=== PATIENT | male | born 1980 | race American Indian/Alaskan Native ===

== ENCOUNTER 2020-12-25 01:19 | Emergency (ER) | payer SELFPAY ==
--- NOTE | 2020-12-25 02:06 | Emergency Department Report ---
HPI <BIANCA HESTER - Last Filed: 12/25/20 15:50> - HPI HPI: Room 37 The patient is a 40-year-old male present with a chief complaint of altered mental status. The patient's roommate states the patient has no past medical history and his last known well time was around lunchtime earlier this afternoon . The patient was found with altered mental status by the roommate. THC and CBD edibles were found near the patient. The patient is behaving as if he is intoxicated <WILMER DONNELLY - Last Filed: 12/26/20 05:18> - General Chief Complaint: Altered Mental Status ED Past Medical Hx <BIANCA HESTER - Last Filed: 12/25/20 15:50> - Past Medical History Previous Medical History?: No Additional medical history: unable to obtain info from patient, per EMS no PMH - Surgical History Past Surgical History?: No - Family History Family history: no significant - Social History Smoking Status: Unknown if ever smoked Substance Use Type: Marijuana <WILMER DONNELLY - Last Filed: 12/26/20 05:18> - Medications Home Medications: Home Medications Medication Instructions Recorded Confirmed Last Taken Type Unobtainable 12/26/20 12/26/20 Unknown History ED Review of Systems ROS: Stated complaint: AMS Other details as noted in HPI <BIANCA HESTER - Last Filed: 12/25/20 15:50> ROS: Stated complaint: AMS Other details as noted in HPI Comment: Unobtainable due to pts medical conditions <WILMER DONNELLY - Last Filed: 12/26/20 05:18> Physical Exam - Physical Exam Vital Signs: Vital Signs 12/25/20 12/25/20 12/25/20 01:36 03:09 06:30 Temperature 98.2 F 98.1 F Pulse Rate 104 H 87 Respiratory 13 16 Rate Blood Pressure 118/61 133/81 [Left] O2 Sat by Pulse 98 100 Oximetry 12/25/20 07:16 Temperature Pulse Rate 74 Respiratory 12 Rate Blood Pressure 129/72 [Left] O2 Sat by Pulse 99 Oximetry <BIANCA HESTER - Last Filed: 12/25/20 15:50> - Physical Exam Vital Signs: Vital Signs 12/25/20 01:36 Temperature 98.2 F Pulse Rate 104 H Respiratory 13 Rate O2 Sat by Pulse 98 Oximetry Physical Exam: GENERAL: The patient is well-developed well-nourished male lying on stretcher appearing intoxicated. [] HEENT: Normocephalic. Atraumatic. Extraocular motions are intact. Patient has moist mucous membranes. NECK: Supple. Trachea midline CHEST/LUNGS: Clear to auscultation. There is no respiratory distress noted. HEART/CARDIOVASCULAR: Regular. There is no tachycardia. There is no gallop rub or murmur. ABDOMEN: Abdomen is soft, nontender. Patient has normal bowel sounds. There is no abdominal distention. SKIN: There is no rash. There is no edema. There is no diaphoresis. NEURO: The patient is awake but behaves as if she is intoxicated patient is smiling and happy at times and other times yelling out. The patient is only intermittently cooperative. The patient has no focal neurologic deficits. The patient has normal speech MUSCULOSKELETAL: There is no evidence of acute injury. <WILMER DONNELLY K - Last Filed: 12/26/20 05:18> ED Course Vital Signs 12/25/20 12/25/20 12/25/20 01:36 03:09 06:30 Temperature 98.2 F 98.1 F Pulse Rate 104 H 87 Respiratory 13 16 Rate Blood Pressure 118/61 133/81 [Left] O2 Sat by Pulse 98 100 Oximetry 12/25/20 07:16 Temperature Pulse Rate 74 Respiratory 12 Rate Blood Pressure 129/72 [Left] O2 Sat by Pulse 99 Oximetry - Reevaluation(s) Reevaluation #1: 12/25/20 13:51 As has been reporting to me patient's mental status evaluation. I also went to the bedside to evaluate patient at this time. I tapped patient on his shoulder and he is opens his eyes and just stares at me. He makes eye contact but would not speak or follow commands. Then he closes his eyes and goes right to sleep. This is consistent with nurses recent evaluation over the last several hours 12/25/20 15:37 Mental health assessed patient and once again he opened his eyes but would not speak. She is requested a UA to complete medical clearance for psychiatric evaluation. 1013 has been signed - Consultations Consultation #1: 12/25/20 13:56 Case discussed with [facility] control. She states that she expects m arijuana/CBD edibles to last approximately 4 to 6 hours until patient is back to normal. She does suggest that if patient took synthetic marijuana which is not detected symptoms can be more unpredictable and prolonged. Also that marijuana can induce a permanent psychiatric break or prolonged mental health effects. No further testing recommended at this time beyond what has been done in the ER. At this time I will obtain mental health evaluation for possible prolonged drugs induced psychosis versus acute drug induced psychiatric break 12/25/20 14:10 Case discussed with [facility] mental health provider. Patient will be assessed by mental health staff <BIANCA HESTER - Last Filed: 12/25/20 15:50> Vital Signs 12/25/20 01:36 Temperature 98.2 F Pulse Rate 104 H Respiratory 13 Rate O2 Sat by Pulse 98 Oximetry <WILMER DONNELLY - Last Filed: 12/26/20 05:18> ED Medical Decision Making - Lab Data Result diagrams: 12/25/20 01:43 12/25/20 01:56 Lab Results 12/25/20 12/25/20 12/25/20 Range/Units 01:43 01:56 01:56 WBC 10.2 (4.5-11.0) K/mm3 RBC 5.26 H (3.65-5.03) M/mm3 Hgb 14.1 (11.8-15.2) gm/dl Hct 42.7 (35.5-45.6) % MCV 81 L (84-94) fl MCH 27 L (28-32) pg MCHC 33 (32-34) % RDW 15.4 H (13.2-15.2) % Plt Count 283 (140-440) K/mm3 Lymph % (Auto) 13.3 L (13.4-35.0) % Gage % (Auto) 6.0 (0.0-7.3) % Eos % (Auto) 0.0 (0.0-4.3) % Baso % (Auto) 0.2 (0.0-1.8) % Lymph # (Auto) 1.4 (1.2-5.4) K/mm3 Gage # (Auto) 0.6 (0.0-0.8) K/mm3 Eos # (Auto) 0.0 (0.0-0.4) K/mm3 Baso # (Auto) 0.0 (0.0-0.1) K/mm3 Seg Neutrophils % 80.5 H (40.0-70.0) % Seg Neutrophils # 8.3 H (1.8-7.7) K/mm3 Sodium 137 (137-145) mmol/L Potassium 4.1 (3.6-5.0) mmol/L Chloride 97.5 L (98-107) mmol/L Carbon Dioxide 24 (22-30) mmol/L Anion Gap 20 mmol/L BUN 8 L (9-20) mg/dL Creatinine 1.0 (0.8-1.3) mg/dL Estimated GFR > 60 ml/min BUN/Creatinine Ratio 8 % Glucose 119 H (75-100) mg/dL Calcium 9.4 (8.4-10.2) mg/dL Total Bilirubin 0.50 (0.1-1.2) mg/dL AST 19 (5-40) units/L ALT 18 (7-56) units/L Alkaline Phosphatase 59 (35-129) units/L Total Creatine Kinase 347 H (55-170) units/L CK-MB (CK-2) 2.4 (0.0-4.0) ng/mL CK-MB (CK-2) Rel Index 0.6 (0-4) Troponin T < 0.010 (0.00-0.029) ng/mL Total Protein 7.4 (6.3-8.2) g/dL Albumin 4.9 (3.9-5) g/dL Albumin/Globulin Ratio 2.0 % Salicylates (2.8-20.0) mg/dL Urine Opiates Screen Urine Methadone Screen Acetaminophen (10.0-30.0) ug/mL Ur Barbiturates Screen Ur Phencyclidine Scrn Ur Amphetamines Screen U Benzodiazepines Scrn Urine Cocaine Screen U Marijuana (THC) Screen Drugs of Abuse Note Plasma/Serum Alcohol < 0.01 (0-0.07) % 12/25/20 12/25/20 12/25/20 Range/Units 02:04 05:27 05:27 WBC (4.5-11.0) K/mm3 RBC (3.65-5.03) M/mm3 Hgb (11.8-15.2) gm/dl Hct (35.5-45.6) % MCV (84-94) fl MCH (28-32) pg MCHC (32-34) % RDW (13.2-15.2) % Plt Count (140-440) K/mm3 Lymph % (Auto) (13.4-35.0) % Gage % (Auto) (0.0-7.3) % Eos % (Auto) (0.0-4.3) % Baso % (Auto) (0.0-1.8) % Lymph # (Auto) (1.2-5.4) K/mm3 Gage # (Auto) (0.0-0.8) K/mm3 Eos # (Auto) (0.0-0.4) K/mm3 Baso # (Auto) (0.0-0.1) K/mm3 Seg Neutrophils % (40.0-70.0) % Seg Neutrophils # (1.8-7.7) K/mm3 Sodium (137-145) mmol/L Potassium (3.6-5.0) mmol/L Chloride (98-107) mmol/L Carbon Dioxide (22-30) mmol/L Anion Gap mmol/L BUN (9-20) mg/dL Creatinine (0.8-1.3) mg/dL Estimated GFR ml/min BUN/Creatinine Ratio % Glucose (75-100) mg/dL Calcium (8.4-10.2) mg/dL Total Bilirubin (0.1-1.2) mg/dL AST (5-40) units/L ALT (7-56) units/L Alkaline Phosphatase (35-129) units/L Total Creatine Kinase (55-170) units/L CK-MB (CK-2) (0.0-4.0) ng/mL CK-MB (CK-2) Rel Index (0-4) Troponin T (0.00-0.029) ng/mL Total Protein (6.3-8.2) g/dL Albumin (3.9-5) g/dL Albumin/Globulin Ratio % Salicylates < 0.3 L (2.8-20.0) mg/dL Urine Opiates Screen Presumptive negative Urine Methadone Screen Presumptive negative Acetaminophen 5.0 L (10.0-30.0) ug/mL Ur Barbiturates Screen Presumptive negative Ur Phencyclidine Scrn Presumptive negative Ur Amphetamines Screen Presumptive negative U Benzodiazepines Scrn Presumptive negative Urine Cocaine Screen Presumptive negative U Marijuana (THC) Screen Presumptive positive Drugs of Abuse Note Disclamer Plasma/Serum Alcohol (0-0.07) % - Radiology Data Radiology results: report reviewed (ct head: naf) - Medical Decision Making 40-year-old male signed out to me by previous provider Dr. Donnelly for marijuana intoxication and abnormal behavior. Patient symptoms have evolved from initial giddiness, yelling to some mild confusion and drowsiness to now blank stares with any type of verbal or tactile stimulation. Patient has been in the ED for over 13 hours and is still not back to his baseline. ED work-up including chemistries, CBC, and CT head are unremarkable. Tox screen reveals marijuana use only with negative alcohol, aspirin, and Tylenol. Vital signs have remained stable and within normal range during ED stay. Case was discussed with poison control who does not recommend any additional testing at this time. I highly suspect the patient is exhibiting prolonged psychiatric symptoms from drug abuse since THC and CBD edibles were found at the scene. Mental health evaluation has been requested due to prolonged duration of drug-induced mental health changes. Ua pending at time of my dispo at 4pm, 1013 signed, attempted to evaluate pt but since he is not speaking will reattempt tomorrow. Will request that Dr Sanford f/u UA results to r/o infection <BIANCA HESTER - Last Filed: 12/25/20 15:50> - Lab Data Result diagrams: 12/25/20 01:43 12/25/20 01:56 - EKG Data -: EKG Interpreted by Me EKG shows normal: sinus rhythm Rate: normal - EKG Data When compared to previous EKG there are: previous EKG unavailable Interpretation: other (No ischemic changes seen) - Differential Diagnosis Intoxication <WILMER DONNELLY - Last Filed: 12/26/20 05:18> Critical Care Time: No Critical care attestation.: If time is entered above; I have spent that time in minutes in the direct care o f this critically ill patient, excluding procedure time. <BIANCA HESTER - Last Filed: 12/25/20 15:50> Critical care attestation.: If time is entered above; I have spent that time in minutes in the direct care of this critically ill patient, excluding procedure time. <WILMER DONNELLY - Last Filed: 12/26/20 05:18> ED Disposition <BIANCA HESTER - Last Filed: 12/25/20 15:50> Is pt being admited?: No Does the pt Need Aspirin: No <WILMER DONNELLY - Last Filed: 12/26/20 05:18> Clinical Impression: Marijuana intoxication, Substance or medication-induced psychotic disorder Disposition: DC/TX-65 PSY HOSP/PSY UNIT Condition: Stable Instructions: Cannabis Use Disorder Additional Instructions: Return to the emergency department should you develop worsening symptoms, inability to tolerate food or liquids, high fever or any other concerns Referrals: PRIMARY CARE, [Primary Care Provider] - 3-5 Days
[2020-12-25] MEDS ORDERED: HALOPERIDOL LACTATE 5 MG/1 ML INJ IM PRN (02:11)
[2020-12-25] MEDS ORDERED: diphenhydrAMINE 50 MG/ML VIAL IM PRN (02:11)
[2020-12-25 02:36] LABS: Basophils % (Auto) 0.2 % (0.0-1.8); Hematocrit 42.7 % (35.5-45.6); Hemoglobin 14.1 gm/dl (11.8-15.2); Lymphocytes # (Auto) 1.4 K/mm3 (1.2-5.4); Lymphocytes % (Auto) 13.3 % (13.4-35.0); Mean Corpuscular HGB Conc 33 % (32-34); Mean Corpuscular Volume 81 fl (84-94); Monocytes # (Auto) 0.6 K/mm3 (0.0-0.8); Platelet Count 283 K/mm3 (140-440); Red Blood Count 5.26 M/mm3 (3.65-5.03); Red Cell Distribution Width 15.4 % (13.2-15.2)
[2020-12-25 02:53] LABS: Amphetamine Screen,Urine PRESUMPTIVE NEGATIVE; Benzodiazepines Screen,Urine PRESUMPTIVE NEGATIVE; Cannabinoid Screen,Urine PRESUMPTIVE POSITIVE; Cocaine Screen,Urine PRESUMPTIVE NEGATIVE; Methadone Screen,Urine PRESUMPTIVE NEGATIVE; Opiate Screen,Urine PRESUMPTIVE NEGATIVE
[2020-12-25 02:58] LABS: Creatine Kinase MB 2.4 ng/mL (0.0-4.0)
[2020-12-25 02:59] LABS: Alanine Aminotransferase 18 units/L (7-56); Albumin 4.9 g/dL (3.9-5); BUN/Creatinine Ratio 8; Blood Urea Nitrogen 8 mg/dL (9-20); Calcium 9.4 mg/dL (8.4-10.2); Hemolysis Index 1
--- NOTE | 2020-12-25 07:15 | Cat Scan Report ---
CT HEAD WITHOUT CONTRAST INDICATION / CLINICAL INFORMATION: Altered mental status. TECHNIQUE: All CT scans at this location are performed using CT dose reduction for ALARA by means of automated exposure control. COMPARISON: None available. FINDINGS: Mild patient motion artifact. HEMORRHAGE: None. EXTRA-AXIAL SPACES: Normal in size and morphology for the patient's age. VENTRICULAR SYSTEM: Normal in size and morphology for the patient's age. CEREBRAL PARENCHYMA: No significant abnormality. No acute territorial infarct. MIDLINE SHIFT / HERNIATION: None. CEREBELLUM / BRAINSTEM: No significant abnormality. ORBITS: Normal as visualized. SOFT TISSUES: No significant abnormality. SKULL: No significant abnormality. PARANASAL SINUSES / MASTOID AIR CELLS: Normal as visualized. ADDITIONAL FINDINGS: None. IMPRESSION: 1. No acute intracranial abnormality. Signer Name: Suhas Green MD Signed: 12/25/2020 7:10 AM Workstation Name: [id number]
[2020-12-25 16:21] LABS: Bilirubin,Urine NEG (Negative); Blood,Urine SM (Negative); Color,Urine Yellow (Yellow); Mucus,Urine 2+ /HPF; Protein,Urine <15 mg/dL mg/dL (Negative); Urobilinogen,Urine < 2.0 mg/dL (<2.0)
--- NOTE | 2020-12-26 12:01 | Consultation ---
History of Present Illness - Reason for Consult Consult date: 12/26/20 Reason for consult: MHE Requesting physician: WILMER VERDUGO - History of Present Psychiatric Illness Per ED Provider: The patient is a 40-year-old male present with a chief complaint of altered mental status. The patient's roommate states the patient has no past medical history and his last known well time was around lunchtime earlier this afternoon. The patient was found with altered mental status by the roommate. THC and CBD edibles were found near the patient. The patient is behaving as if he is intoxicated PSYCH HPI Patient is a 40-year-old single single unemployed -[place] male with no past psychiatric history who presented to the ED due to bizarre behavior. Patient reported he just met ago and tried some THC infused substances with CBD that he had tried for the first time could not really recollect what happened after that until being told about it in the hospital. This time patient denies SI, HI auditory visual hallucination feels more like himself and ready to go home. PAST PSYCHIATRIC HISTORY Diagnoses: none reported Suicide attempts or Self-harm behavior: none reported Prior psychiatric hospitalizations: none reported Substance Abuse history: none reported Previous psychiatric medications tried: none reported Outpatient treatment: none reported PAST MEDICAL HISTORY: none reported Family Psychiatric History: None reported or documented SOCIAL HISTORY Marital Status: single Living Arrangements: rent Employment Status: unemployed Access to guns/weapons: none reported Education: [employer] [facility] [place] History of Abuse: none reported Legal History: none reported REVIEW OF SYSTEMS Constitutional: Negative for weight loss ENT: Negative for stridor Respiratory: Negative for cough or hemoptysis All other systems reviewed and are negative MENTAL STATUS EXAMINATION General Appearance and Behavior: Age appropriate, good hygiene, wearing appropriate clothes, good eye contact, cooperative polite with questioning. Cooperation: Participating/engaged Psychomotor Behavior: unremarkable and within normal limits Mood: Good Affect and affective range: congruent with mood Thought Process: Fluent/Logical, Thought Content: Within reality, Speech: Normal volume, Regular rate and rhythm, Intellectual Functioning: Average Suicidal Ideation: Denies SI Homicidal Ideation: Denies HI Impulse Control: Unimpaired Insight and Judgment: Normal insight and judgment, Memory: Normal, Attention: Normal, Orientation: Alert, oriented, Assessment and Plan - Psychiatric problem (1) Unspecified mood [affective] disorder Current Visit: Yes Status: Acute F39 Treatment Plan MEDICATIONS: Risks, benefits and alternatives of medications discussed with the patient, questions answered and consent obtained from patient. PSYCHOTHERAPY: Supportive psychotherapy provided MEDICAL: Per primary team DELIRIUM PRECAUTIONS: Please re-orient patient frequently, keep lights on during the day, and minimize benzodiazepines and opiates as these medications could worsen patient's confusion. CORD SPLICER: DISPOSITION: Do Not Recommend acute inpatient psychiatric hospitalization at this time. Case discussed with Dr. Alcala who agrees with current disposition LEGAL STATUS: 1013 rescinded FOLLOW-UP: Will sign off Thank you for the consult. Please contact with any questions and/or concerns. Medications and Allergies Allergies Allergy/AdvReac Type Severity Reaction Status Date / Time Unable to Assess Allergy Unverified 12/25/20 01:38 Home Medications Medication Instructions Recorded Confirmed Last Taken Type Unobtainable 12/26/20 12/26/20 Unknown History Mental Status Exam - Vital signs Last Vital Signs Temp 98.2 F 12/26/20 02:00 Pulse 77 12/26/20 02:00 Resp 18 12/26/20 02:00 BP 131/57 12/26/20 02:00 Pulse Ox 99 12/26/20 02:00 Results Result Diagrams: 12/25/20 01:43 12/25/20 01:56 All other labs normal. Assessment and Plan - Psychiatric problem (1) Unspecified mood [affective] disorder Current Visit: Yes Status: Acute
[2020-12-27 10:57] VITALS: BP 144/80
== END 2020-12-27 11:54 ==
LOC: ED 01:19
DX: F12.929 Cannabis use, unspecified with intoxication, unspecified (principal); F19.959 Other psychoactive substance use, unspecified with psychoactive substance-induced psychotic disorder, unspecified; F12.90 Cannabis use, unspecified, uncomplicated
CPT/HCPCS: 36415; 70450; 80053; 80307; 81001; 82550; 82553; 84484; 85025; 93005; 96372; 99285; J1200; J1630; 80320; G0480